=== PATIENT | male | born 1945 | race African-American/Black ===

== ENCOUNTER 2022-12-18 12:57 | Outpatient (CLI) | payer MEDICARE, SELFPAY ==
[2022-12-19 17:25] LABS: Testosterone, Adult Male 448 ng/dL (300-720)
== END 2022-12-18 12:58 | disposition home or self-care (01) ==
PROVIDERS: Visit Provider Internal Medicine
DX: C61 Malignant neoplasm of prostate (principal)
CPT/HCPCS: 36415; 84153; 84403

== ENCOUNTER 2023-01-26 13:00 | Outpatient (RCR) | payer MEDICARE, SELFPAY ==
--- NOTE | 2022-12-28 09:13 | URNOTE ---
Per [facility]'s Medical Injectable Drug Authorization List, prior authorization is not required for Bas[place] ([id number]).
--- NOTE | 2022-12-28 09:40 | PC.NURSE ---
diagnosis: prostate cancer
[2022-12-29 13:22] VITALS: BP 137/82; PULSE 61; RESP 16; TEMP 36.4; O2SAT 100
[2022-12-29] MEDS: LEUPROLIDE ACETATE 7.5 MG (SQ) SYRINGE SUBCUT (13:43)
[2023-01-26 13:13] VITALS: BP 135/75; PULSE 65; RESP 16; TEMP 36.2; O2SAT 98
[2023-01-26] MEDS: LEUPROLIDE ACETATE 22.5 MG (SQ) SYRINGE SUBCUT (13:24)
== END 2023-06-27 23:59 | disposition home or self-care (01) ==
LOC: CCIC 13:00
PROVIDERS: Visit Provider Clinical Nurse Specialist
DX: C61 Malignant neoplasm of prostate (principal)
CPT/HCPCS: 96401; J9217